=== PATIENT | male | born 1945 | race Caucasian/White ===

== ENCOUNTER 2022-01-24 22:58 | Inpatient (IN) | payer MEDICARE ==
[~2022-01-24] VITALS: Ht 188 cm; Wt 105.0 kg
[2022-01-25 00:36] LABS: BASOPHILS ABSOLUTE AUTO 0.03 K/mm3 (0.00-0.23); BASOPHILS PERCENT AUTO 0 % (0-2); EOSINOPHILS ABSOLUTE AUTO 0.19 K/mm3 (0.00-0.68); EOSINOPHILS PERCENT AUTO 2 % (0-6); IMMATURE GRAN ABSOLUTE AUTO 0.04 K/mm3 (0.00-0.10); IMMATURE GRAN PERCENT AUTO 0 % (0-1); LYMPHOCYTES ABSOLUTE AUTO 1.13 K/mm3 (0.84-5.20); LYMPHOCYTES PERCENT AUTO 11 % (21-46); MONOCYTES ABSOLUTE AUTO 1.01 K/mm3 (0.16-1.47); MONOCYTES PERCENT AUTO 10 % (4-13); Mean Corpuscular HGB 33.1 pg (26.0-34.0); Mean Corpuscular HGB Conc 34.4 g/dL (31.5-36.5); Mean Corpuscular Volume 96 fL (80-100); Mean Platelet Volume 11.8 fL (9.1-12.4); NEUTROPHILS ABSOLUTE AUTO 7.47 K/mm3 (1.96-9.15); NEUTROPHILS PERCENT AUTO 76 % (41-73); Platelet Count 263 K/mm3 (150-400); RDW Coefficient Variation 12.7 % (11.7-14.2); RDW Standard Deviation 45.1 fL (35.1-46.3); Red Blood Cell Count 3.32 M/mm3 (4.30-5.90); White Blood Cell Count 9.87 K/mm3 (4.00-11.30)
[2022-01-25 00:50] LABS: Albumin, Blood 3.7 g/dL (3.4-5.0); Albumin/Globulin Ratio 0.8 (0.8-1.8); Bilirubin, Total 0.2 mg/dL (0.1-1.0); Bun/Creatinine Ratio 18.9 (12.0-20.0); Creatinine, Blood 1.64 mg/dL (0.60-1.20); Globulin, Blood 4.5 g/dL (2.2-4.0); Potassium, Blood 4.1 mmol/L (3.5-5.5); Total Protein, Blood 8.2 g/dL (6.4-8.2)
[2022-01-25 02:10] LABS: International Normalized Ratio 0.98; Prothrombin Time Results 10.3 Sec (9.7-11.5)
[2022-01-25] MEDS ORDERED: METF500 PO (02:37)
[2022-01-25] MEDS ORDERED: ALLO300 PO (02:37)
[2022-01-25] MEDS ORDERED: BISOPROLOL-HCT1 EACH PO (02:38)
[2022-01-25] MEDS ORDERED: GLIP10 PO (02:39)
[2022-01-25] MEDS ORDERED: Avapro150 MG PO (02:41)
[2022-01-25] MEDS ORDERED: CILO100 PO (02:41)
[2022-01-25] MEDS ORDERED: C COMPLEX1000 M1 PO (02:42)
--- NOTE | 2022-01-25 03:38 | NUR ---
PATIENT RECEIVED AT ABOUT 0230. ADMISSION ASSESSMENT AND OTHER RELATED FORMS COMPLETED. PATIENT IS ADMITTED FOR ACUTE RIGHT PROXIMAL FEMUR FRACTURE WITH POSSIBLE SURGERY THIS AFTERNOON. HX OF DM 2, HTN, AND GOUT. PATIENT WILL NEED ORTHOPEDIC CONSULT TO HELP DETERMINE NEED FOR SURGERY. FULL CODE. PATIENT ON ROOM AIR. AOX4. VERY HARD OF HEARING, ADEPT AT LIP READING. SCDS IN PLACE FOR DVT PROPHYLAXIS. PERMISSION TO GIVE BLOOD AND PERMISSION TO SHARE INFORMATION FORMS COMPLETED AND IN CHART. CALL LIGHT LEFT WITHIN REACH.
--- NOTE | 2022-01-25 04:53 | NUR ---
ORTHOPEDIC CONSULT REQUEST PLACED. PATIENT SLEPT THROUGH REST OF NIGHT AFTER ADMISSION FORMS COMPLETED. NS RUNNING AT 75 ML/HOUR. CALL LIGHT LEFT WITHIN REACH.
[2022-01-25 05:16] LABS: BASOPHILS ABSOLUTE AUTO 0.02 K/mm3 (0.00-0.23); BASOPHILS PERCENT AUTO 0 % (0-2); EOSINOPHILS ABSOLUTE AUTO 0.05 K/mm3 (0.00-0.68); EOSINOPHILS PERCENT AUTO 1 % (0-6); Hemoglobin 9.5 g/dL (13.5-17.5); IMMATURE GRAN ABSOLUTE AUTO 0.03 K/mm3 (0.00-0.10); IMMATURE GRAN PERCENT AUTO 0 % (0-1); LYMPHOCYTES ABSOLUTE AUTO 0.66 K/mm3 (0.84-5.20); LYMPHOCYTES PERCENT AUTO 7 % (21-46); MONOCYTES ABSOLUTE AUTO 1.05 K/mm3 (0.16-1.47); MONOCYTES PERCENT AUTO 11 % (4-13); Mean Corpuscular HGB 32.8 pg (26.0-34.0); Mean Corpuscular HGB Conc 33.9 g/dL (31.5-36.5); Mean Corpuscular Volume 97 fL (80-100); Mean Platelet Volume 11.4 fL (9.1-12.4); NEUTROPHILS ABSOLUTE AUTO 7.58 K/mm3 (1.96-9.15); NEUTROPHILS PERCENT AUTO 81 % (41-73); Platelet Count 234 K/mm3 (150-400); RDW Coefficient Variation 12.7 % (11.7-14.2); RDW Standard Deviation 44.7 fL (35.1-46.3); White Blood Cell Count 9.39 K/mm3 (4.00-11.30)
[2022-01-25 05:34] LABS: Albumin, Blood 3.1 g/dL (3.4-5.0); Albumin/Globulin Ratio 0.8 (0.8-1.8); Bilirubin, Total 0.4 mg/dL (0.1-1.0); Bun/Creatinine Ratio 21.8 (12.0-20.0); Calcium, Blood 8.2 mg/dL (8.5-10.1); Creatinine, Blood 1.42 mg/dL (0.60-1.20); Globulin, Blood 3.8 g/dL (2.2-4.0); Potassium, Blood 4.4 mmol/L (3.5-5.5); Total Protein, Blood 6.9 g/dL (6.4-8.2)
--- NOTE | 2022-01-25 15:11 | NUR ---
SHIFT SUMMARY PT RESTING QUIETLY AWAKE DURING SHIFT REPORT. LYING FLAT ON BACK D/T R HIP FX. MEDICATED FOR C/O PAIN PRIOR TO START OF SHIFT, BUT SOON REPORTING SEVERE PAIN AGAIN EARLY INTO SHIFT. DR CHAPMAN NOTIFIED FOR ADDITIONAL PAIN MEDICATION; NEW ORDERS RECEIVED. PT MEDICATED PRIOR TO STAT CT ORDER AND SLIDE TX TO [facility]. DR BRITT HERE LATER TO SEE PT AND DISCUSS PLAN OF CARE. WOUND TO BOTTOM OF R FOOT ASSESSED BY DR BRITT; ADDITIONAL XRAYS ORDERED. IMAGING TO AND ABLE TO OBTAIN XRAYS W/O ANOTHER SLIDE TX OF PT. PT REPORTED THAT HE HAD AN APPOINTMENT WITH PODIATRY IN [place] TODAY, BUT UNABLE TO GO D/T FALL LAST NIGHT. PT IS VERY [place]; ABLE TO READ LIPS. USING URINAL IN BED TODAY. DAY SX CALLED TO REPORT PT'S SX WILL BE TOMORROW AM. PT MAY EAT TODAY AND RETURN TO NPO AFTER MN. IVF'S INFUSING X1 LITER. FAMILY IN TO VISIT THIS AFTERNOON. PT IS PLEASANT AND CO-OP. ABLE TO MAKE NEEDS KNOWN. CALL LT IN REACH.
--- NOTE | 2022-01-26 04:08 | NUR ---
SHIFT SUMMARY ADMITTED FOR PROXIMAL RT. FEMUR FX. FULL CODE. PLAN IS FOR SURGICAL INTERVENTION TODAY. DR. WEEMS IS SURGICAL CONSULT. Q6 CBG'S WHILE NPO, OTHERWISE ACHS - LOW SS. HE HAS BEEN NPO SINCE MIDNIGHT. HE HAS WOKEN UP CONFUSED AND CALLING OUT A FEW TIMES THIS SHIFT. BED ALARM IS ACTIVE. PAIN RX GIVEN THIS SHIFT, SEE EMAR. HE IS ON BEDREST THIS SHIFT. HE DOES USE A URINAL. HE READS LIPS, HE HAS A COCHLEAR IMPLANT. THERE IS A DRY PRE-EXISTING DIABETIC ULCER ON BOTTOM OF RT. FOOT. ON RA.
[2022-01-26 05:13] LABS: BASOPHILS ABSOLUTE AUTO 0.02 K/mm3 (0.00-0.23); BASOPHILS PERCENT AUTO 0 % (0-2); EOSINOPHILS ABSOLUTE AUTO 0.06 K/mm3 (0.00-0.68); EOSINOPHILS PERCENT AUTO 1 % (0-6); Hematocrit 28.7 % (37.0-53.0); Hemoglobin 9.8 g/dL (13.5-17.5); IMMATURE GRAN ABSOLUTE AUTO 0.03 K/mm3 (0.00-0.10); IMMATURE GRAN PERCENT AUTO 0 % (0-1); LYMPHOCYTES ABSOLUTE AUTO 1.08 K/mm3 (0.84-5.20); LYMPHOCYTES PERCENT AUTO 12 % (21-46); MONOCYTES ABSOLUTE AUTO 1.11 K/mm3 (0.16-1.47); MONOCYTES PERCENT AUTO 12 % (4-13); Mean Corpuscular HGB 32.6 pg (26.0-34.0); Mean Corpuscular HGB Conc 34.1 g/dL (31.5-36.5); Mean Corpuscular Volume 95 fL (80-100); Mean Platelet Volume 11.3 fL (9.1-12.4); NEUTROPHILS ABSOLUTE AUTO 6.87 K/mm3 (1.96-9.15); NEUTROPHILS PERCENT AUTO 75 % (41-73); Platelet Count 252 K/mm3 (150-400); RDW Coefficient Variation 12.4 % (11.7-14.2); RDW Standard Deviation 43.2 fL (35.1-46.3); Red Blood Cell Count 3.01 M/mm3 (4.30-5.90); White Blood Cell Count 9.17 K/mm3 (4.00-11.30)
[2022-01-26 05:52] LABS: Albumin, Blood 3.1 g/dL (3.4-5.0); Anion Gap 7 mmol/L (6-16); Blood Urea Nitrogen 25 mg/dL (8-24); Bun/Creatinine Ratio 21.2 (12.0-20.0); CO2, Blood 25 mmol/L (21-32); Calcium, Blood 8.7 mg/dL (8.5-10.1); Chloride, Blood 101 mmol/L (98-108); Creatinine, Blood 1.18 mg/dL (0.60-1.20); Glomerular Filtration Rate 64 (60-); Glucose, Blood 245 mg/dL (70-99); Phosphorus, Blood 2.9 mg/dL (2.5-4.9); Potassium, Blood 4.4 mmol/L (3.5-5.5); Sodium, Blood 133 mmol/L (136-145)
--- NOTE | 2022-01-26 08:09 | NUR ---
DAHLIA ABURTO, AND APPEARS TO BE CONFUSED. DR. BURKETT HERE THIS AM, STATES SURGERY WILL BE 9AM. ASSESSEMENT COMPLETED. INSULIN AND OTHER MORNING MEDICATIONS HELD WITH CONSULT OF DR. CARABALLO. PATIENT IS AWAITING SURGERY.
--- NOTE | 2022-01-26 10:32 | NUR ---
Patient went to surgery this am at 9am. He will be transfered to surgical 17 once done, for post op care. Report ws called to NATO Uriarte.
--- NOTE | 2022-01-26 17:26 | NUR ---
END OF SHIFT NOTE PT BROUGHT TO SURGICAL RM 217 FROM OR @ APPROX 1215 TODAY AFTER R HIP REPAIR. PT SLEEPING HEAVILY, WAKING ONLY FOR SHORT TIME BEFORE GOING BACK TO SLEEP. PT MORE ALERT THIS EVENING. PT [place], REQUESTING STAFF MASK BE LOWERED WHEN TALKING TO HIM BECAUSE HE READS LIPS. PT VSS. SPO2 > 92% ON RA. PT DENYING PAIN/DISCOMFORT. DRESSING TO R HIP C/D/I. PT URINATING POST SURGERY W/ OUT DIFFICULTY.
[2022-01-27 04:57] LABS: BASOPHILS ABSOLUTE AUTO 0.01 K/mm3 (0.00-0.23); BASOPHILS PERCENT AUTO 0 % (0-2); EOSINOPHILS ABSOLUTE AUTO 0.02 K/mm3 (0.00-0.68); EOSINOPHILS PERCENT AUTO 0 % (0-6); Hematocrit 25.7 % (37.0-53.0); Hemoglobin 8.7 g/dL (13.5-17.5); IMMATURE GRAN ABSOLUTE AUTO 0.04 K/mm3 (0.00-0.10); IMMATURE GRAN PERCENT AUTO 0 % (0-1); LYMPHOCYTES ABSOLUTE AUTO 1.21 K/mm3 (0.84-5.20); LYMPHOCYTES PERCENT AUTO 11 % (21-46); MONOCYTES ABSOLUTE AUTO 1.42 K/mm3 (0.16-1.47); MONOCYTES PERCENT AUTO 12 % (4-13); Mean Corpuscular HGB 32.8 pg (26.0-34.0); Mean Corpuscular HGB Conc 33.9 g/dL (31.5-36.5); Mean Corpuscular Volume 97 fL (80-100); Mean Platelet Volume 11.6 fL (9.1-12.4); NEUTROPHILS ABSOLUTE AUTO 8.83 K/mm3 (1.96-9.15); NEUTROPHILS PERCENT AUTO 77 % (41-73); Platelet Count 251 K/mm3 (150-400); RDW Coefficient Variation 12.3 % (11.7-14.2); RDW Standard Deviation 43.1 fL (35.1-46.3); Red Blood Cell Count 2.65 M/mm3 (4.30-5.90); White Blood Cell Count 11.53 K/mm3 (4.00-11.30)
[2022-01-27 05:22] LABS: Bun/Creatinine Ratio 26.4 (12.0-20.0); Calcium, Blood 8.3 mg/dL (8.5-10.1); Creatinine, Blood 1.29 mg/dL (0.60-1.20); Potassium, Blood 4.6 mmol/L (3.5-5.5)
--- NOTE | 2022-01-27 06:46 | NUR ---
POD1 FOR A RIGHT HIP PINNING. DRESSINGS ARE C/D/I. CIRCULATION AND SENSATION REMAIN INTACT. MEDCATED FOR PAIN WITH NORCO T/O THE NIGHT. PT WAS ABLE TO SHIFT HIS WEIGHT IN BED BUT REFUSED REPOSITIONING T/O THE NIGHT. THE PT SLEP ON AND OFF. TOLLERATED PO INTAKE W/O N/V, PASSING FLATTUS AND URINE W/O DIFFICULTY. PLAN FOR PT TO WORK WITH PT/OT TODAY AND EVALUATE WHEN D/C HOME SAFE. THE PATIENT IS CURRENTLY RESTING IN BED, IN NO DISTRESS, CALL LIGHT IN reach
--- NOTE | 2022-01-27 07:12 | NUR ---
ASSUMED CARE: PT RESTING QUIETLY AT THIS TIME. NO ACUTE NEEDS OR CONCERNS.
--- NOTE | 2022-01-27 07:59 | NUR ---
OCCUPATIONAL THERAPY AT BEDSIDE AT THIS TIME.
[2022-01-27] MEDS ORDERED: METO50ER PO (13:32)
--- NOTE | 2022-01-27 15:27 | NUR ---
DISCHARGE: IV'S DC'D WNL. PT GIVEN DISCHARGE INSTRUCTIONS REGARDING FOLLOW UP APPOINTMENTS AND WAS ASKED TO DEMONSTRATE HIP PRECAUTIONS. PT EXHIBITED ABILITY TO STAND AND PIVOT AND WAS CORRECTED DURING INAPPROPRIATE TECHNIQUE. FAMILY WAS INCLUDED IN THESE DEMONSTRATIONS AND CONVERSATIONS. PT WAS ESCORTED OUT VIA WHEEL CHAIR BY HOSPITAL STAFF.
--- NOTE | 2022-01-31 10:40 | NUR ---
01/31/22 1040 Marie Mckeon VERIFICATIONS: EDIT CHART.
== END 2022-01-27 01:45 | disposition home or self-care (01) | DRG 481 ==
LOC: ER 22:58 → SURS 01-25 02:05 → MEDS 01-25 02:05 → SURS 01-25 02:05 → MEDS 01-25 02:16 → SURS 01-26 11:40
PROVIDERS: Family Medicine; Orthopaedic Surgery; Student in an Organized Health Care Education/Training Program; ADMIT Internal Medicine
PROC: 0QS606Z Reposition Right Upper Femur with Intramedullary Internal Fixation Device, Open Approach (ICD-10-PCS; principal; 2022-01-26 09:30)
DX: S72.141A Displaced intertrochanteric fracture of right femur, initial encounter for closed fracture (principal); N17.9 Acute kidney failure, unspecified; D63.1 Anemia in chronic kidney disease; Z28.21 Immunization not carried out because of patient refusal; N18.30 Chronic kidney disease, stage 3 unspecified; E11.22 Type 2 diabetes mellitus with diabetic chronic kidney disease; I12.9 Hypertensive chronic kidney disease with stage 1 through stage 4 chronic kidney disease, or unspecified chronic kidney disease; M10.9 Gout, unspecified; Z87.891 Personal history of nicotine dependence; Z88.8 Allergy status to other drugs, medicaments and biological substances; Z95.828 Presence of other vascular implants and grafts; W18.39XA Other fall on same level, initial encounter; Y92.019 Unspecified place in single-family (private) house as the place of occurrence of the external cause
CPT/HCPCS: 36415; 73502; 73552; 73630; 73700; 76377; 80048; 80053; 80069; 82947; 83880; 85025; 85610; 85730; 86850; 86900; 86901; 96374; 97110; 97162; 97166; 97530; 97535; 99285-25; A9270; C1713; J0171; J0690; J1100; J1170; J1885; J2250; J2405; J2704; J3010; J7030; J7120

== ENCOUNTER 2022-10-12 08:48 | Day surgery (SDC) | payer MEDICARE ==
[~2022-10-12] VITALS: Ht 188 cm; Wt 99.0 kg
[~2022-10-12 08:48] MED LIST: ALLO300 PO; Avapro150 MG PO; BISOPROLOL-HCT1 EACH PO; C COMPLEX1000 M1 PO; CILO100 PO; GLIP10 PO; METF500 PO; METO50ER PO
[2022-10-12 13:01] VITALS: BP 122/71
== END 2022-10-12 11:11 | disposition home or self-care (01) ==
LOC: ORSCSDS 08:48
PROVIDERS: Specialist
PROC: 0DBP8ZX Excision of Rectum, Via Natural or Artificial Opening Endoscopic, Diagnostic (ICD-10-PCS; principal; 2022-10-12 09:45)
PROC: 0DBM8ZX Excision of Descending Colon, Via Natural or Artificial Opening Endoscopic, Diagnostic (ICD-10-PCS; principal; 2022-10-12 09:45)
PROC: 0DBL8ZX Excision of Transverse Colon, Via Natural or Artificial Opening Endoscopic, Diagnostic (ICD-10-PCS; principal; 2022-10-12 09:45)
DX: Z12.11 Encounter for screening for malignant neoplasm of colon (principal); Z86.010 Personal history of colon polyps; D12.3 Benign neoplasm of transverse colon; D12.4 Benign neoplasm of descending colon; D12.8 Benign neoplasm of rectum; K64.8 Other hemorrhoids; K57.30 Diverticulosis of large intestine without perforation or abscess without bleeding; I10 Essential (primary) hypertension; E11.9 Type 2 diabetes mellitus without complications; Z86.718 Personal history of other venous thrombosis and embolism; Z87.891 Personal history of nicotine dependence; Z79.899 Other long term (current) drug therapy
CPT/HCPCS: 82947; 88305; J2405; J2704; J7120

== ENCOUNTER 2023-04-10 18:07 | Inpatient (IN) | payer MEDICARE ==
[~2023-04-10] VITALS: Ht 188 cm; Wt 102.1 kg
[2023-04-10 18:48] LABS: Source, Urine Clean Catch
[2023-04-10 18:52] LABS: Appearance, Urine Clear (Clear); Bilirubin, Urine Neg (Neg); Blood, Urine Neg (Neg); Color, Urine Yellow (P-Yellow); Glucose Qualitative, Urine Neg (Neg); Ketones, Urine Neg (Neg); Leukocyte Esterase, Urine Neg (Neg); Nitrite, Urine Neg (Neg); Protein, Urine Neg (Neg); Urobilinogen, Urine NORM (Normal)
[2023-04-10] MEDS ORDERED: NS 1,000 ML IV SCH (19:10)
[2023-04-10] MEDS ORDERED: Acetaminophen 500 MG Tab PO ONE (19:10)
[2023-04-10 19:13] LABS: Albumin, Blood 3.7 g/dL (3.4-5.0); Bilirubin, Total 0.4 mg/dL (0.1-1.0); Bun/Creatinine Ratio 23.4 (12.0-20.0); Calcium, Blood 8.2 mg/dL (8.5-10.1); Creatinine, Blood 1.54 mg/dL (0.60-1.20); Globulin, Blood 3.7 g/dL (2.2-4.0); Potassium, Blood 4.7 mmol/L (3.5-5.5); Total Protein, Blood 7.4 g/dL (6.4-8.2)
[2023-04-10 19:50] LABS: BASOPHILS ABSOLUTE AUTO 0.02 K/mm3 (0.00-0.23); BASOPHILS PERCENT AUTO 0 % (0-2); EOSINOPHILS ABSOLUTE AUTO 0.01 K/mm3 (0.00-0.68); EOSINOPHILS PERCENT AUTO 0 % (0-6); Hematocrit 29.8 % (37.0-53.0); IMMATURE GRAN ABSOLUTE AUTO 0.12 K/mm3 (0.00-0.10); IMMATURE GRAN PERCENT AUTO 1 % (0-1); LYMPHOCYTES PERCENT AUTO 4 % (21-46); MONOCYTES ABSOLUTE AUTO 1.44 K/mm3 (0.16-1.47); MONOCYTES PERCENT AUTO 10 % (4-13); Mean Corpuscular HGB 32.8 pg (26.0-34.0); Mean Corpuscular HGB Conc 33.6 g/dL (31.5-36.5); Mean Corpuscular Volume 98 fL (80-100); Mean Platelet Volume 11.2 fL (9.1-12.4); NEUTROPHILS ABSOLUTE AUTO 12.83 K/mm3 (1.96-9.15); NEUTROPHILS PERCENT AUTO 85 % (41-73); Platelet Count 204 K/mm3 (150-400); RDW Coefficient Variation 13.2 % (11.7-14.2); RDW Standard Deviation 47.2 fL (35.1-46.3); Red Blood Cell Count 3.05 M/mm3 (4.30-5.90); White Blood Cell Count 15.02 K/mm3 (4.00-11.30)
[2023-04-10 20:00] LABS: Influenza A, PCR NEGATIVE (NEGATIVE); Influenza B, PCR NEGATIVE (NEGATIVE); Resp Syncytial Virus, PCR NEGATIVE (NEGATIVE); SARS-Cov-2 (COVID-19) PCR, MMC NEGATIVE (NEGATIVE)
[2023-04-10] MEDS ORDERED: IRBESARTAN150 M3 PO (21:01)
[2023-04-10 21:59] LABS: Adenovirus Not Detected (NOT DETECT); Bordetella pertussis Not Detected (NOT DETECT); Chlamydophila pneumoniae Not Detected (NOT DETECT); Coronavirus 229E Not Detected (NOT DETECT); Coronavirus HKU1 Not Detected (NOT DETECT); Coronavirus NL63 Not Detected (NOT DETECT); Coronavirus OC43 Not Detected (NOT DETECT); Human Metapneumovirus Not Detected (NOT DETECT); Human Rhinovirus/Enterovirus Not Detected (NOT DETECT); Influenza A/2009-H1 Not Detected (NOT DETECT); Influenza A/H1 Not Detected (NOT DETECT); Influenza A/H3 Not Detected (NOT DETECT); Influenza B Not Detected (NOT DETECT); Mycoplasma pneumoniae Not Detected (NOT DETECT); Parainfluenza Virus 1 Not Detected (NOT DETECT); Parainfluenza Virus 2 Not Detected (NOT DETECT); Parainfluenza Virus 3 Not Detected (NOT DETECT); Parainfluenza Virus 4 Not Detected (NOT DETECT); Respiratory Syncytial Virus Not Detected (NOT DETECT); SARS-Cov-2 (COVID-19), BioFire Not Detected (NOT DETECT)
[2023-04-10] MEDS ORDERED: Ondansetron HCl 2 MG / ML 2ML Vial IV PRN (22:35)
[2023-04-10] MEDS ORDERED: FLU VACC QS2023-24(6MOS UP)/PF 60 MCG/0.5 ML SYRINGE IM ONE (22:35)
[2023-04-10] MEDS ORDERED: NS 1,000 ML IV ONE ×2 (22:35→22:52)
[2023-04-10] MEDS ORDERED: CefTRIAXone Sodium 1,000 MG in NS 50 ML IV SCH (22:41)
[2023-04-10] MEDS ORDERED: Enoxaparin 40 MG/0.4 ML SYR SC SCH (23:00)
[2023-04-11 00:23] VITALS: BP 126/62
[2023-04-11 00:25] LABS: BASOPHILS ABSOLUTE AUTO 0.02 K/mm3 (0.00-0.23); BASOPHILS PERCENT AUTO 0 % (0-2); EOSINOPHILS PERCENT AUTO 0 % (0-6); Hematocrit 29.7 % (37.0-53.0); Hemoglobin 9.7 g/dL (13.5-17.5); IMMATURE GRAN ABSOLUTE AUTO 0.09 K/mm3 (0.00-0.10); IMMATURE GRAN PERCENT AUTO 1 % (0-1); LYMPHOCYTES ABSOLUTE AUTO 0.93 K/mm3 (0.84-5.20); LYMPHOCYTES PERCENT AUTO 7 % (21-46); MONOCYTES ABSOLUTE AUTO 1.01 K/mm3 (0.16-1.47); MONOCYTES PERCENT AUTO 7 % (4-13); Mean Corpuscular HGB 32.6 pg (26.0-34.0); Mean Corpuscular HGB Conc 32.7 g/dL (31.5-36.5); Mean Corpuscular Volume 100 fL (80-100); Mean Platelet Volume 11.4 fL (9.1-12.4); NEUTROPHILS ABSOLUTE AUTO 12.14 K/mm3 (1.96-9.15); NEUTROPHILS PERCENT AUTO 86 % (41-73); Platelet Count 191 K/mm3 (150-400); RDW Coefficient Variation 13.4 % (11.7-14.2); RDW Standard Deviation 49.1 fL (35.1-46.3); Red Blood Cell Count 2.98 M/mm3 (4.30-5.90); White Blood Cell Count 14.19 K/mm3 (4.00-11.30)
[2023-04-11 00:39] LABS: International Normalized Ratio 1.04; Prothrombin Time Results 10.9 Sec (9.7-11.5)
[2023-04-11 00:45] LABS: Albumin, Blood 3.3 g/dL (3.4-5.0); Albumin/Globulin Ratio 0.9 (0.8-1.8); Bilirubin, Total 0.3 mg/dL (0.1-1.0); Bun/Creatinine Ratio 22.4 (12.0-20.0); Calcium, Blood 8.5 mg/dL (8.5-10.1); Creatinine, Blood 1.65 mg/dL (0.60-1.20); Globulin, Blood 3.7 g/dL (2.2-4.0)
[2023-04-11 03:28] VITALS: BP 122/73
[2023-04-11] MEDS ORDERED: FentaNYL Citrate 50 MCG/ML 2 ML Injection IV PRN (05:30)
[2023-04-11] MEDS ORDERED: CeFAZolin Sodium 1,000 MG in NS 50 ML IV SCH (06:00)
[2023-04-11] MEDS ORDERED: Insulin Regular 100 UNIT/ML 10ML Vial SC SCH (07:30)
[2023-04-11 08:05] VITALS: BP 101/58
--- NOTE | 2023-04-11 08:06 | NUR ---
SHIFT SUMMARY PT ARRIVED TO ROOM 349 FROM ER AROUND MIDNIGHT VIA GURNEY. TRANSFERED PT TO HOSPITAL BED USING SLIDE SHEET. PT IS A&O TO SELF AND PERSON. VSS ON RA. NSR IN THE 80'S PER TELEMETRY. PT IS DEAF, HAS COCHLEAR IMPLANT ON LEFT. BATTERY IS , SO HOPEFULLY HIS BRINGS IN THE REAL ESTATE FIRM MANAGER. PT READS LIPS MOSTLY. C/O PAIN IN HIS RIGHT LEG R/T BREAKING HIS FEMUR LAST YEAR, AND ALSO PAIN IN HIS BACK. CALLED DR TO GET PAIN MEDICATIONS, SEE NEW ORDER. TOLERATING THIN LIQUIDS WITH STRAW, NO COUGHING. USES URINAL INDEPENDENTLY IN BED. VOIDING ADEQUATE AMOUNTS OF CLEAR, YELLOW URINE. NO BM THIS SHIFT. PT'S LLE HAYES AREA IS RED AND WARM, LOOKS LIKE POSSIBLE CELLULITIS. NO C/O PAIN HERE. PT USES A CANE OR FWW AT BASELINE. HAS NOT BEEN OOB HERE YET. BED IN LOWEST POSITION, CALL LIGHT WITHIN REACH.
[2023-04-11] MEDS ORDERED: Irbesartan 150 MG Tab PO SCH (09:00)
[2023-04-11] MEDS ORDERED: Metoprolol Succinate 50 MG TABCR PO SCH (09:00)
[2023-04-11] MEDS ORDERED: Cilostazol 50 MG Tab PO SCH (09:00)
[2023-04-11 11:00] VITALS: BP 103/59
[2023-04-11 15:59] VITALS: BP 118/74
--- NOTE | 2023-04-11 18:03 | NUR ---
SHIFT SUMMARY PT BP SOFT TODAY. METOPROLOL AND AVAPRO HELD TODAY. MD NOTIFIED AND PARAMETERS ADDED TO ORDER. PT SLEEPING MOST THE DAY. PT STATES "ITS A SLEEPY DAY TODAY". INSULIN GIVEN ONCE TODAY FOR DINNER COVERAGE. NO OTHER ACUTE CHANGES IN ASSESSMENT AT THIS TIME. VS REVIEWD. CALL LIGHT IN REACH. UP IN BED, EATING DINNER. AWAITING PT EVAL. NO OTHER ACUTE CHANGES IN ASSESSMENT AT THIS TIME. PT HAS DRUM REEL CUTTER FOR COCHLEAR IMPLANT. PT IS ORIENTED WHEN HE HAS THIS CHARGED AND ABLE TO HEAR STAFF. DENIES OTHER NEEDS AT THIS TIME.
[2023-04-11 19:42] VITALS: BP 134/64
[2023-04-12 00:47] VITALS: BP 141/67
--- NOTE | 2023-04-12 02:53 | NUR ---
SHIFT SUMMARY ALISIA IS A&OX2-3, HARD TO ASSESS D/T HIM BEING DEAF. VSS ON RA. NSR IN THE 80'S PER TELEMETRY. PT C/O LARRY AND PAIN IN HIS LEGS, DID NOT WANT TO TAKE PRN FENTANYL. NO ACUTE CHANGES THIS SHIFT. PT DID C/O CHEST PAIN, VSS WERE STABLE AND HE WAS IN NSR @86. IT WAS AFTER GIVING HIM HIS NIGHT TIME MEDICATIONS AND HE THOUGHT THEY WERE MAKING HIM SICK. SALTINE CRACKERS GIVEN, IT DID HELP. HE ALSO STATED HE ATE [place] FOR DINNER. USES URINAL INDEPENDENTLY IN BED. NO BM THIS SHIFT. NOOB THIS SHIFT. BED IN LOWEST POSITION, CALL LIGHT WITHIN REACH. BED ALARM SET FOR PT'S SAFETY.
[2023-04-12 03:59] VITALS: BP 128/67
[2023-04-12 05:30] LABS: BASOPHILS ABSOLUTE AUTO 0.02 K/mm3 (0.00-0.23); BASOPHILS PERCENT AUTO 0 % (0-2); EOSINOPHILS ABSOLUTE AUTO 0.05 K/mm3 (0.00-0.68); EOSINOPHILS PERCENT AUTO 1 % (0-6); Hematocrit 27.7 % (37.0-53.0); Hemoglobin 9.2 g/dL (13.5-17.5); IMMATURE GRAN ABSOLUTE AUTO 0.04 K/mm3 (0.00-0.10); IMMATURE GRAN PERCENT AUTO 1 % (0-1); LYMPHOCYTES PERCENT AUTO 14 % (21-46); MONOCYTES PERCENT AUTO 14 % (4-13); Mean Corpuscular HGB 32.9 pg (26.0-34.0); Mean Corpuscular HGB Conc 33.2 g/dL (31.5-36.5); Mean Corpuscular Volume 99 fL (80-100); Mean Platelet Volume 12.3 fL (9.1-12.4); NEUTROPHILS PERCENT AUTO 71 % (41-73); Platelet Count 171 K/mm3 (150-400); RDW Coefficient Variation 13.3 % (11.7-14.2); RDW Standard Deviation 48.4 fL (35.1-46.3); White Blood Cell Count 8.51 K/mm3 (4.00-11.30)
[2023-04-12 05:49] LABS: Bun/Creatinine Ratio 19.4 (12.0-20.0); Calcium, Blood 8.4 mg/dL (8.5-10.1); Creatinine, Blood 1.29 mg/dL (0.60-1.20); Potassium, Blood 3.8 mmol/L (3.5-5.5)
[2023-04-12 07:44] VITALS: BP 134/67
[2023-04-12] MEDS ORDERED: Irbesartan 150 MG Tab PO SCH (09:00)
[2023-04-12] MEDS ORDERED: Metoprolol Succinate 50 MG TABCR PO SCH (09:00)
[2023-04-12] MEDS ORDERED: CEPH500 PO (10:02)
[2023-04-12] MEDS ORDERED: PROBIOTIC1 EA13 PO (10:02)
--- NOTE | 2023-04-12 10:44 | NUR ---
DISCHARGE HOME Patient AOx4, OOB walked with patient, steady gait, doing well. IV ABX administred, pt medically stable for discharge. Left medical unit t 1025.
== END 2023-04-12 10:26 | disposition home or self-care (01) | DRG 603 ==
LOC: ER 18:07 → MEDS 18:08
PROVIDERS: Emergency Medicine; Internal Medicine; Student in an Organized Health Care Education/Training Program; ADMIT Internal Medicine
DX: L03.116 Cellulitis of left lower limb (principal); G93.49 Other encephalopathy; N17.9 Acute kidney failure, unspecified; E11.22 Type 2 diabetes mellitus with diabetic chronic kidney disease; I12.9 Hypertensive chronic kidney disease with stage 1 through stage 4 chronic kidney disease, or unspecified chronic kidney disease; E11.51 Type 2 diabetes mellitus with diabetic peripheral angiopathy without gangrene; N18.2 Chronic kidney disease, stage 2 (mild); Z79.84 Long term (current) use of oral hypoglycemic drugs; Z87.891 Personal history of nicotine dependence
CPT/HCPCS: 0202U; 0241U; 36415; 71046; 80048; 80053; 81003; 82947; 83605; 84145; 85025; 85610; 96361; 96365; 96375; 99285-25; A9270; J0690; J0696; J1650; J1815; J3010; J7030

== ENCOUNTER 2023-09-02 22:03 | Emergency (ER) | payer MEDICARE ==
[~2023-09-02] VITALS: Ht 182.9 cm; Wt 90.7 kg
[~2023-09-02 22:03] MED LIST changes: +CEPH500 PO; +IRBESARTAN150 M3 PO; +PROBIOTIC1 EA13 PO
[2023-09-02 22:23] VITALS: BP 161/88
[2023-09-03 00:16] LABS: BASOPHILS ABSOLUTE AUTO 0.04 K/mm3 (0.00-0.23); BASOPHILS PERCENT AUTO 0 % (0-2); EOSINOPHILS ABSOLUTE AUTO 0.13 K/mm3 (0.00-0.68); EOSINOPHILS PERCENT AUTO 1 % (0-6); Hematocrit 29.9 % (37.0-53.0); Hemoglobin 10.1 g/dL (13.5-17.5); IMMATURE GRAN ABSOLUTE AUTO 0.02 K/mm3 (0.00-0.10); IMMATURE GRAN PERCENT AUTO 0 % (0-1); LYMPHOCYTES ABSOLUTE AUTO 1.95 K/mm3 (0.84-5.20); LYMPHOCYTES PERCENT AUTO 19 % (21-46); MONOCYTES ABSOLUTE AUTO 1.19 K/mm3 (0.16-1.47); MONOCYTES PERCENT AUTO 11 % (4-13); Mean Corpuscular HGB 32.7 pg (26.0-34.0); Mean Corpuscular HGB Conc 33.8 g/dL (31.5-36.5); Mean Corpuscular Volume 97 fL (80-100); NEUTROPHILS ABSOLUTE AUTO 7.14 K/mm3 (1.96-9.15); NEUTROPHILS PERCENT AUTO 68 % (41-73); Platelet Count 262 K/mm3 (150-400); RDW Coefficient Variation 13.6 % (11.7-14.2); RDW Standard Deviation 48.2 fL (35.1-46.3); Red Blood Cell Count 3.09 M/mm3 (4.30-5.90); White Blood Cell Count 10.47 K/mm3 (4.00-11.30)
[2023-09-03 00:31] LABS: Bun/Creatinine Ratio 21.6 (12.0-20.0); Calcium, Blood 8.9 mg/dL (8.5-10.1); Creatinine, Blood 1.34 mg/dL (0.60-1.20); Potassium, Blood 4.1 mmol/L (3.5-5.5)
[2023-09-03] MEDS ORDERED: CLIN300 PO (01:09)
[2023-09-03] MEDS ORDERED: Clindamycin HCl 150 MG Cap PO ONE (01:10)
== END 2023-09-03 01:45 | disposition home or self-care (01) ==
LOC: ER 22:03
PROVIDERS: Emergency Medicine
DX: L03.116 Cellulitis of left lower limb (principal); E11.621 Type 2 diabetes mellitus with foot ulcer; E11.51 Type 2 diabetes mellitus with diabetic peripheral angiopathy without gangrene; E11.22 Type 2 diabetes mellitus with diabetic chronic kidney disease; I12.9 Hypertensive chronic kidney disease with stage 1 through stage 4 chronic kidney disease, or unspecified chronic kidney disease; N18.9 Chronic kidney disease, unspecified; Z87.891 Personal history of nicotine dependence; Z79.899 Other long term (current) drug therapy
CPT/HCPCS: 73630; 80048; 85025; 99283-25; A9270

== ENCOUNTER 2023-09-18 12:05 | Inpatient (IN) | payer MEDICARE ==
[~2023-09-18] VITALS: Ht 188 cm; Wt 95.5 kg
[~2023-09-18 12:05] MED LIST changes: +CLIN300 PO
[2023-09-18 12:51] LABS: BASOPHILS ABSOLUTE AUTO 0.03 K/mm3 (0.00-0.23); BASOPHILS PERCENT AUTO 0 % (0-2); EOSINOPHILS ABSOLUTE AUTO 0.12 K/mm3 (0.00-0.68); EOSINOPHILS PERCENT AUTO 2 % (0-6); Hemoglobin 9.2 g/dL (13.5-17.5); IMMATURE GRAN ABSOLUTE AUTO 0.02 K/mm3 (0.00-0.10); IMMATURE GRAN PERCENT AUTO 0 % (0-1); LYMPHOCYTES ABSOLUTE AUTO 1.13 K/mm3 (0.84-5.20); LYMPHOCYTES PERCENT AUTO 14 % (21-46); MONOCYTES ABSOLUTE AUTO 0.76 K/mm3 (0.16-1.47); MONOCYTES PERCENT AUTO 10 % (4-13); Mean Corpuscular HGB 31.8 pg (26.0-34.0); Mean Corpuscular HGB Conc 32.9 g/dL (31.5-36.5); Mean Corpuscular Volume 97 fL (80-100); Mean Platelet Volume 10.7 fL (9.1-12.4); NEUTROPHILS PERCENT AUTO 74 % (41-73); Platelet Count 405 K/mm3 (150-400); RDW Coefficient Variation 13.2 % (11.7-14.2); RDW Standard Deviation 46.9 fL (35.1-46.3); Red Blood Cell Count 2.89 M/mm3 (4.30-5.90); White Blood Cell Count 7.96 K/mm3 (4.00-11.30)
[2023-09-18 13:12] LABS: Albumin, Blood 3.1 g/dL (3.4-5.0); Albumin/Globulin Ratio 0.6 (0.8-1.8); Bilirubin, Total 0.3 mg/dL (0.1-1.0); Calcium, Blood 8.8 mg/dL (8.5-10.1); Creatinine, Blood 1.35 mg/dL (0.60-1.20); Potassium, Blood 4.5 mmol/L (3.5-5.5); Total Protein, Blood 8.1 g/dL (6.4-8.2)
[2023-09-18] MEDS ORDERED: CLIN150 PO (15:50)
[2023-09-18] MEDS ORDERED: ATOR40TA PO (15:51)
[2023-09-18] MEDS ORDERED: POTA10T PO (15:52)
[2023-09-18] MEDS ORDERED: FURO20 PO (15:52)
[2023-09-18] MEDS ORDERED: Ondansetron HCl 2 MG / ML 2ML Vial IV PRN (16:50)
[2023-09-18] MEDS ORDERED: FentaNYL Citrate 50 MCG/ML 2 ML Injection IV PRN (16:55)
[2023-09-18] MEDS ORDERED: Acetaminophen 325 MG TABLET PO PRN (16:55)
[2023-09-18] MEDS ORDERED: NS 1,000 ML IV SCH (16:55)
[2023-09-18] MEDS ORDERED: Insulin Glargine-Yfgn 100 Unit/mL 3 ML SYR SC SCH (17:00)
[2023-09-18 17:32] LABS: International Normalized Ratio 1.01; Prothrombin Time Results 10.8 Sec (9.7-11.5)
[2023-09-18] MEDS ORDERED: CefTRIAXone Sodium 2,000 MG in NS 100 ML IV ONE (18:35)
[2023-09-18 18:55] VITALS: BP 166/86
[2023-09-18] MEDS ORDERED: Vancomycin HCL 2,500 MG in NS 500 ML IV ONE (19:00)
[2023-09-18 21:02] VITALS: BP 148/90
[2023-09-19 02:12] VITALS: BP 130/67
--- NOTE | 2023-09-19 04:00 | NUR ---
SHIFT SUMMARY ASSUMED CARE AT APPROX 191. NO ACUTE EVENTS OVERNIGHT. PATIENT SLEPT T/O - IS EASILY AROUSABLE WITH VERBAL STIMULI. ALERT AND ORIENTED X4. IS DEAF - HEARING AIDES AT BEDSIDE. COMMUNICATES NEEDS EFFECTIVELY. VSS. TELEMETRY SHOWING SINUS 80s. NO EVENTS REPORTED BY CANDY FEEDER T/O NIGHT. ON ROOM AIR, SATs >90%. RESPIRATIONS EVEN, UNLABORED. OPEN WOUND TO L PINKY TOE. PICTURE IN CHART. GAUZE AND HEATHER WRAP BANDAGE APPLIED, REMAINS C/D/I. PPP. PAIN TOLERABLE T/O NIGHT. NPO SINCE MIDNIGHT FOR POSSIBLE AMPUTATION TODAY. REPOSITIONS HIMSELF INDEPENDENTLY IN BED. IS A SBA WITH CANE FOR MOBILITY. CALL LIGHT IN REACH. X1 BAG OF IVF INFUSING PER EMAR. WILL CONTINUE TO MONITOR AND REPORT TO ONCOMING RN.
--- NOTE | 2023-09-19 06:01 | NUR ---
MD COTTER NOTIFIED OF PODIATRY CONSULT. CONFIRMED THAT PATIENT HAS BEEN NPO SINCE MIDNIGHT. PER MD, PATIENT TO GO TO OR TODAY. SECY NOTIFIED.
[2023-09-19 06:12] LABS: BASOPHILS ABSOLUTE AUTO 0.03 K/mm3 (0.00-0.23); BASOPHILS PERCENT AUTO 0 % (0-2); EOSINOPHILS ABSOLUTE AUTO 0.16 K/mm3 (0.00-0.68); EOSINOPHILS PERCENT AUTO 2 % (0-6); Hematocrit 27.3 % (37.0-53.0); Hemoglobin 8.9 g/dL (13.5-17.5); IMMATURE GRAN ABSOLUTE AUTO 0.02 K/mm3 (0.00-0.10); IMMATURE GRAN PERCENT AUTO 0 % (0-1); LYMPHOCYTES ABSOLUTE AUTO 1.34 K/mm3 (0.84-5.20); LYMPHOCYTES PERCENT AUTO 18 % (21-46); MONOCYTES ABSOLUTE AUTO 0.94 K/mm3 (0.16-1.47); MONOCYTES PERCENT AUTO 13 % (4-13); Mean Corpuscular HGB 31.4 pg (26.0-34.0); Mean Corpuscular HGB Conc 32.6 g/dL (31.5-36.5); Mean Corpuscular Volume 97 fL (80-100); NEUTROPHILS ABSOLUTE AUTO 4.87 K/mm3 (1.96-9.15); NEUTROPHILS PERCENT AUTO 66 % (41-73); Platelet Count 387 K/mm3 (150-400); RDW Coefficient Variation 13.1 % (11.7-14.2); RDW Standard Deviation 46.9 fL (35.1-46.3); Red Blood Cell Count 2.83 M/mm3 (4.30-5.90); White Blood Cell Count 7.36 K/mm3 (4.00-11.30)
[2023-09-19 06:33] LABS: Albumin, Blood 2.8 g/dL (3.4-5.0); Albumin/Globulin Ratio 0.6 (0.8-1.8); Bilirubin, Total 0.3 mg/dL (0.1-1.0); Bun/Creatinine Ratio 17.3 (12.0-20.0); Calcium, Blood 8.2 mg/dL (8.5-10.1); Creatinine, Blood 1.1 mg/dL (0.60-1.20); Globulin, Blood 4.4 g/dL (2.2-4.0); Potassium, Blood 3.7 mmol/L (3.5-5.5); Total Protein, Blood 7.2 g/dL (6.4-8.2)
[2023-09-19] MEDS ORDERED: Insulin Human Lispro 100 Units/ML 3ML Syringe SC SCH (07:30)
[2023-09-19 07:42] VITALS: BP 132/76
[2023-09-19] MEDS ORDERED: Furosemide 20 MG Tab PO SCH (09:00)
[2023-09-19] MEDS ORDERED: Metoprolol Succinate 50 MG TABCR PO SCH (09:00)
[2023-09-19] MEDS ORDERED: Atorvastatin 40 MG Tab PO SCH (09:00)
[2023-09-19] MEDS ORDERED: Irbesartan 150 MG Tab PO SCH (09:00)
[2023-09-19] MEDS ORDERED: Allopurinol 300 MG Tab PO SCH (09:00)
[2023-09-19] MEDS ORDERED: Cilostazol 50 MG Tab PO SCH (09:00)
--- NOTE | 2023-09-19 11:49 | NUR ---
SPOKE TO OR STAFF SURGERY PLANNED FOR SOMETIME THIS LATE AFTERNOON.
[2023-09-19] MEDS ORDERED: Polyethylene Glycol 3350 17 gm PO PRN (11:55)
[2023-09-19] MEDS ORDERED: METFORMIN HCL500 M2 PO (14:05)
[2023-09-19 14:59] VITALS: BP 136/64
--- NOTE | 2023-09-19 18:18 | NUR ---
SHIFT SUMMARY PT NPO MOST THE DAY AWAITING SURGERY TODAY. UNFORTUNATELY SURGERY WAS PUSHED BACK UNTIL TOMORROW. DINNER TRAY PROVIDED & PLAN TO BE NPO AFTER MIDNIGHT AGAIN TONIGHT. NO CHANGES IN PATIENT ASSESSMENT. PT COOPERATIVE AND UNDERSTANDING ABOUT SURGERY TIME CHANGE. PT UP IN BED EATING DINNER. CALL LIGHT IN REACH. DENIES OTHER NEEDS AT THIS TIME.
[2023-09-19 19:51] VITALS: BP 124/70
[2023-09-20] VITALS (16 sets, daily range): BP systolic 115–163; BP diastolic 69–98
--- NOTE | 2023-09-20 02:57 | NUR ---
SHIFT SUMMARY PT. IS A&OX4, [place], COOP WITH CARE. PT.IS NPO AFTER MIDNIGHT FOR A SCHEDULED LEFT FOOT 5TH TOE AMPUTATION TODAY BY . PT. DENIES PAIN, SOB OR DISCOMFORT. TELE:SINUS RHYTHM 70'S WITH 1ST DEGREE HB. NO ACUTE EVENTS/DISTRESS NOTED/REPORTED DURING THIS SHIFT. WILL HANDOFF TO THE INCOMING SHIFT NURSE. CALL LIGHT IN REACH.
[2023-09-20 05:46] LABS: Hematocrit 28.7 % (37.0-53.0); Hemoglobin 9.4 g/dL (13.5-17.5); Mean Corpuscular HGB 31.4 pg (26.0-34.0); Mean Corpuscular HGB Conc 32.8 g/dL (31.5-36.5); Mean Corpuscular Volume 96 fL (80-100); Mean Platelet Volume 11.2 fL (9.1-12.4); Platelet Count 390 K/mm3 (150-400); RDW Coefficient Variation 13.1 % (11.7-14.2); RDW Standard Deviation 45.9 fL (35.1-46.3); Red Blood Cell Count 2.99 M/mm3 (4.30-5.90); White Blood Cell Count 7.06 K/mm3 (4.00-11.30)
[2023-09-20 06:12] LABS: Bun/Creatinine Ratio 16.8 (12.0-20.0); Calcium, Blood 8.4 mg/dL (8.5-10.1); Creatinine, Blood 1.13 mg/dL (0.60-1.20); Potassium, Blood 3.9 mmol/L (3.5-5.5)
[2023-09-20] MEDS ORDERED: Enoxaparin 40 MG/0.4 ML SYR SC SCH (09:00)
[2023-09-20] MEDS ORDERED: propofoL 20 ML IV ONE (16:56)
[2023-09-20] MEDS ORDERED: FentaNYL Citrate 50 MCG/ML 2 ML Injection ONE (16:57)
[2023-09-20] MEDS ORDERED: Lactated Ringer's 1,000 ML IV SCH (17:15)
[2023-09-20] MEDS ORDERED: CefTRIAXone Sodium 1,000 MG in NS 100 ML IV ONE (17:20)
[2023-09-20] MEDS ORDERED: NS 1,000 ML IV SCH (17:35)
[2023-09-20] MEDS ORDERED: Midazolam HCl 1MG / ML 2ML Vial IV ONE (17:40)
[2023-09-20] MEDS ORDERED: Lidocaine HCL 1% 10 ML MDV ONE (17:40)
[2023-09-20] MEDS ORDERED: Bupivacaine 0.5% Inj 10 ML Vial ONE (17:40)
--- NOTE | 2023-09-20 17:56 | NUR ---
PATIENT NPO TODAY FOR L 5TH TOE AMPUTATION TODAY. PATIENT IS DOWN GETTING THAT DONE NOW. PATIENT IS A/OX4, UP WITH FWW INDEPENDENTLY IN ROOM. VSS, ON RA. PLEASANT AND COOPERATIVE WITH CARE. NO NEW CONCERNS THIS SHIFT. PATIENT ABLE TO COMMUNICATE NEEDS.
--- NOTE | 2023-09-20 18:01 | NUR ---
History, Chart, Medications and Allergies reviewed before start of procedure. Patient up to Ambulate independently. Gait steady. Pre-Op teaching done. Pt verbalizes understanding. Patient confirms NPO status and agrees with scheduled surgery.
[2023-09-20] MEDS ORDERED: Ondansetron HCl 2 MG / ML 2ML Vial ONE (18:04)
[2023-09-20] MEDS ORDERED: Dexamethasone Sod Phos 10 MG/ML 1ML VIAL ONE (18:04)
[2023-09-20] MEDS ORDERED: Phenylephrine HCl 100 MCG/ML-NS 10MLSYR (1MG/10ML) ONE (18:05)
[2023-09-20] MEDS ORDERED: ePHEDrine Sulfate 50 MG/ML 1ML Injection ONE (18:11)
[2023-09-20] MEDS ORDERED: Flumazenil 0.1 MG / ML 5ML Vial ONE (18:44)
--- NOTE | 2023-09-20 19:20 | NUR ---
TELE RECCONECTED AND CONFIRMED WITH FOOD SANITARIAN
[2023-09-20] MEDS ORDERED: NS 250 ML IV PRN (20:00)
[2023-09-21 04:38] VITALS: BP 115/69
--- NOTE | 2023-09-21 05:01 | NUR ---
SHIFT SUMMARY PT. TRANSFERRED BACK TO MEDICAL FLOOR FROM PCU POST SURGERY DURING THIS SHFIT AT . PT.IS A&O X4. LEFT FOOT DRESSING C/D/I. VSS. 100% DINNER, CBG @ 247.TELE:SR@70.PT. RESTING HOB>45 DEGREES, LLE ELEVATED WITH PILLOW. SMALL AMOUNT RED COLOR DRAINAGE, 1X DRESSING CHANGE OF MID&OUTER LAYER BY NATO WEEKS. NO S/SX OF REDNESS/WARMTH/SWELLING NOTED DURING THIS SHIFT. MEDICATED FOR PAIN 2X WITH TYLENOL PO PRN, AND 1X FETANYL IV PRN, C/O 8/10 PAIN. PT.REPORTS GOOD EFFECTIVNESS. PT. RESTING COMFORTABLY T/O THIS SHIFT, BED AT THE LOWEST POSITION, CALL LIGHT IN REACH. WILL HANDOFF TO THE DAY SHIFT NURSE.
[2023-09-21 07:49] VITALS: BP 138/79
[2023-09-21 16:03] VITALS: BP 113/64
--- NOTE | 2023-09-21 16:18 | NUR ---
NO ACUTE CHANGES THIS SHIFT. PT IS ALERT AND ORIENTED X4, ABLE TO MAKE NEEDS KNOWN. DRESSING IS C/D/I. DR. COTTER IN TO SEE PT THIS AFTERNOON. PER DR. COTTER OK TO DISCHARGE ON HIS END. WATCH FOR EXESSIVE BLEEDING WITH AMBULATION. HEEL TOUCH OK, AND WITH BOOT/SHOE ON. TREATED PAIN PER EMAR.
[2023-09-21 20:09] VITALS: BP 116/65
[2023-09-22 04:15] VITALS: BP 118/64
[2023-09-22 05:18] LABS: Hematocrit 27.2 % (37.0-53.0); Mean Corpuscular HGB Conc 33.1 g/dL (31.5-36.5); Mean Corpuscular Volume 97 fL (80-100); Mean Platelet Volume 11.3 fL (9.1-12.4); Platelet Count 350 K/mm3 (150-400); RDW Coefficient Variation 13.1 % (11.7-14.2); Red Blood Cell Count 2.81 M/mm3 (4.30-5.90); White Blood Cell Count 9.61 K/mm3 (4.00-11.30)
[2023-09-22 05:47] LABS: Bun/Creatinine Ratio 20.8 (12.0-20.0); Calcium, Blood 8.2 mg/dL (8.5-10.1); Creatinine, Blood 1.25 mg/dL (0.60-1.20); Potassium, Blood 3.8 mmol/L (3.5-5.5)
--- NOTE | 2023-09-22 07:19 | NUR ---
NOC SHIFT SUMMARY PT APPEARED TO SLEEP WELL. HE IS ABLE TO AMBULATE INDEPENDENTLY WITH HIS BOOT ON AND HIS FWW. HE HAS EXCELLENT SAFETY AWARENESS.
[2023-09-22 07:33] VITALS: BP 105/60
== END 2023-09-22 13:14 | disposition home or self-care (01) | DRG 617 ==
LOC: ER 12:05 → MEDS 12:06
PROVIDERS: Internal Medicine; Physician Assistant; Podiatrist; ADMIT Internal Medicine
PROC: 0QBP0ZZ Excision of Left Metatarsal, Open Approach (ICD-10-PCS; 2023-09-20)
PROC: 0Y6Y0Z0 Detachment at Left 5th Toe, Complete, Open Approach (ICD-10-PCS; principal; 2023-09-20 17:00)
DX: E11.69 Type 2 diabetes mellitus with other specified complication (principal); M86.172 Other acute osteomyelitis, left ankle and foot; E11.51 Type 2 diabetes mellitus with diabetic peripheral angiopathy without gangrene; B95.1 Streptococcus, group B, as the cause of diseases classified elsewhere; B95.62 Methicillin resistant Staphylococcus aureus infection as the cause of diseases classified elsewhere; K21.9 Gastro-esophageal reflux disease without esophagitis; J45.909 Unspecified asthma, uncomplicated; L97.524 Non-pressure chronic ulcer of other part of left foot with necrosis of bone; I12.9 Hypertensive chronic kidney disease with stage 1 through stage 4 chronic kidney disease, or unspecified chronic kidney disease; E11.621 Type 2 diabetes mellitus with foot ulcer; M10.9 Gout, unspecified; Z79.84 Long term (current) use of oral hypoglycemic drugs; Z79.2 Long term (current) use of antibiotics; Z79.899 Other long term (current) drug therapy; Z87.891 Personal history of nicotine dependence; L03.032 Cellulitis of left toe; N18.2 Chronic kidney disease, stage 2 (mild); E78.5 Hyperlipidemia, unspecified; Z79.82 Long term (current) use of aspirin; Z87.81 Personal history of (healed) traumatic fracture
CPT/HCPCS: 36415; 73620; 80048; 80053; 82947; 83880; 85025; 85027; 85610; 87071; 87075; 87077; 87147; 87186; 87205; 88305; 88311; 96365; 99284-25; A9270; G0378; J0696; J1100; J1650; J1815; J2001; J2250; J2371; J2405; J2704; J3010; J7030

== ENCOUNTER 2023-12-29 12:00 | Emergency (ER) | payer MEDICARE ==
[~2023-12-29] VITALS: Ht 188 cm; Wt 101.6 kg
[~2023-12-29 12:00] MED LIST changes: +ATOR40TA PO; +CLIN150 PO; +FURO20 PO; +METFORMIN HCL500 M2 PO; +POTA10T PO
[2023-12-29 12:19] VITALS: BP 157/76
== END 2023-12-29 13:41 | disposition home or self-care (01) ==
LOC: ER 12:00
DX: M25.551 Pain in right hip (principal); Z87.891 Personal history of nicotine dependence
CPT/HCPCS: 73502; 73562-RT; 99283-25

== ENCOUNTER 2024-02-07 10:13 | Day surgery (SDC) | payer MEDICARE ==
[~2024-02-07] VITALS: Ht 188 cm; Wt 89.2 kg
[2024-02-07] MEDS ORDERED: CeFAZolin Sodium 2,000 MG VIAL ONE (10:15)
[2024-02-07] MEDS ORDERED: Lactated Ringer's 1,000 ML IV ONE ×2 (10:16→10:27)
[2024-02-07] MEDS ORDERED: NS 50 ML IV ONE (10:16)
[2024-02-07 10:50] VITALS: BP 151/79
--- NOTE | 2024-02-07 11:43 | NUR ---
02/07/24 1143 ANTONETTE BORREGO PT READY FOR OR, PT NOTIFIED HE IS NEXT UP FOR OR. CALL LIGHT AT BEDSIDE, BOB DUTTON, IN TO CHECK ON PATIENT
[2024-02-07] MEDS ORDERED: FentaNYL Citrate 50 MCG/ML 2 ML Injection ONE (12:04)
[2024-02-07] MEDS ORDERED: propofoL 20 ML IV ONE (12:04)
== END 2024-02-07 13:06 | disposition home or self-care (01) ==
LOC: ORSCSDS 10:13
DX: T84.9XXA Unspecified complication of internal orthopedic prosthetic device, implant and graft, initial encounter (principal); Z96.9 Presence of functional implant, unspecified; Z53.9 Procedure and treatment not carried out, unspecified reason
CPT/HCPCS: 82947; J0690; J2704; J3010; J7120

== ENCOUNTER 2024-02-16 09:16 | Day surgery (SDC) | payer MEDICARE ==
[2024-02-16] VITALS (14 sets, daily range): BP systolic 130–174; BP diastolic 70–97
[~2024-02-16] VITALS: Ht 188 cm; Wt 98.0 kg
[2024-02-16] MEDS ORDERED: CeFAZolin Sodium 2,000 MG in NS 100 ML IV SCH (09:25)
[2024-02-16] MEDS ORDERED: Lactated Ringer's 1,000 ML IV SCH (09:25)
[2024-02-16] MEDS ORDERED: CeFAZolin Sodium 2,000 MG VIAL ONE (09:53)
--- NOTE | 2024-02-16 10:15 | NUR ---
History, Chart, Medications and Allergies reviewed before start of procedure. Pre-Op teaching done. Pt verbalizes understanding. Patient confirms NPO status and agrees with scheduled surgery. PT REQUESTS TO WEAR HEARING AID AND UPPER DENTURE BACK TO OR. LICENSED MORTGAGE LOAN OFFICER GIVEN 2 DENTURE CUPS FOR BOTH HEARING AID AND DENTURE.
--- NOTE | 2024-02-16 10:25 | NUR ---
[facility] SENT TO LAB FOR PT/PTT, CBC, AND TYPE & SCREEN. CALLED LAB AND VERIFIED THAT THE CBC CAN BE RAN FROM THE [facility].
[2024-02-16 10:48] LABS: Hematocrit 30.4 % (37.0-53.0); Hemoglobin 10.1 g/dL (13.5-17.5); Mean Corpuscular HGB 32.8 pg (26.0-34.0); Mean Corpuscular HGB Conc 33.2 g/dL (31.5-36.5); Mean Corpuscular Volume 99 fL (80-100); Mean Platelet Volume 11.4 fL (9.1-12.4); Platelet Count 231 K/mm3 (150-400); RDW Coefficient Variation 13.3 % (11.7-14.2); RDW Standard Deviation 47.1 fL (35.1-46.3); Red Blood Cell Count 3.08 M/mm3 (4.30-5.90); White Blood Cell Count 6.31 K/mm3 (4.00-11.30)
[2024-02-16 11:00] LABS: International Normalized Ratio 0.96; Prothrombin Time Results 10.3 Sec (9.7-11.5)
[2024-02-16] MEDS ORDERED: Tranexamic Acid 100 ML IV SCH (11:05)
[2024-02-16] MEDS ORDERED: FentaNYL Citrate 50 MCG/ML 5 ML Injection ONE (11:14)
[2024-02-16] MEDS ORDERED: propofoL 20 ML IV ONE (11:14)
[2024-02-16] MEDS ORDERED: Dexamethasone Sod Phos 10 MG/ML 1ML VIAL ONE (11:15)
[2024-02-16] MEDS ORDERED: Lidocaine HCl 2% 20 ML MDV ONE (11:15)
[2024-02-16] MEDS ORDERED: Ondansetron HCl 2 MG / ML 2ML Vial ONE (11:15)
[2024-02-16] MEDS ORDERED: Rocuronium Bromide 10 MG/ML 5ML Injection IV ONE ×2 (11:15→13:56)
[2024-02-16] MEDS ORDERED: EpiNEPhrine 1 MG/1 ML 1ML Vial ONE (11:42)
[2024-02-16] MEDS ORDERED: Bupivacaine 0.5% HCl 5 MG/ML 30MLVIAL ONE (11:42)
[2024-02-16] MEDS ORDERED: Phenylephrine HCl 100 MCG/ML-NS 10MLSYR (1MG/10ML) ONE (11:48)
[2024-02-16] MEDS ORDERED: Ondansetron HCl 2 MG / ML 2ML Vial IV PRN (11:50)
[2024-02-16] MEDS ORDERED: HYDROmorphone HCl/Pf 1MG SYR IV PRN (11:50)
[2024-02-16] MEDS ORDERED: FentaNYL Citrate 50 MCG/ML 2 ML Injection IV PRN ×3 (11:50→11:55)
[2024-02-16] MEDS ORDERED: TraMADol HCl 50 MG Tab PO PRN (15:55)
--- NOTE | 2024-02-16 16:09 | NUR ---
REPORT RECEIVED FROM MONICA DUTTON. VSS. PT ON RA. PT A&OX4. PT [place], HEARING DEVICE IN PLACE. PT REQUESTING PO FLUIDS AND TOLERATING THEM WELL. PT DENIES PAIN, NAUSEA OR OTHER DISCOMFORTS. WARM BLANKETS PROVIDED. PT HAS PRESSURE TAPE TO RIGHT HIP THAT IS C/D/I WITHOUT DRAINAGE, REDNESS OR SWELLING.
--- NOTE | 2024-02-16 16:14 | NUR ---
WAITING FOR PT TO ARRIVE TO GO OVER D/C INSTRUCTIONS DUE TO HIS [place]. PT TOLERATING PO FOOD/FLUIDS. NO COMPLAINTS.
--- NOTE | 2024-02-16 16:42 | NUR ---
1630: DR PRICE AT BEDSIDE. PER DR PRICE, OKAY TO D/C PT HOME IF HE IS ABLE TO AMBULATE, OTHERWISE SEND HIM TO SURGICAL FLOOR FOR EXTENDED RECOVERY. 1635: PT ABLE TO AMBULATE W/FWW TO BR TO VOID. PT ABLE TO DRESS INTO CLOTHES INDEPENDENTLY. JUST AWAITING RIDE HOME TO GO OVER D/C INSTRUCTIONS.
--- NOTE | 2024-02-16 17:09 | NUR ---
Patient up to Ambulate independently WITH FWW. Gait steady AND CONSISTENT WITH PT BASELINE. DR PRICE AWARE OF BP, NO NEW ORDERS RECEIVED. OKAY TO D/C HOME PER DR PRICE. PT HAS NO COMPLAINTS AND VERBALIZES READINESS TO GO HOME. Discharge instructions reviewed with patient AND HIS . Patient AND verbalize understanding. Copy given to patient to take home. Dressing to procedure site clean, dry, intact with no visible drainage, swelling, erythema or bruising noted. Discharged via wheelchair to private car for ride home. PT BELONGINGS RETURNED TO PT.
== END 2024-02-16 17:09 | disposition home or self-care (01) ==
LOC: ORSCMMR 09:16 → ORD 10:00 → ORSCMMR 11:15 → ORD 11:45 → ORSCMMR 17:09
PROVIDERS: Anesthesiology; Orthopaedic Surgery
PROC: 0SP904Z Removal of Internal Fixation Device from Right Hip Joint, Open Approach (ICD-10-PCS; principal; 2024-02-16 11:15)
DX: T84.9XXA Unspecified complication of internal orthopedic prosthetic device, implant and graft, initial encounter (principal); Z96.9 Presence of functional implant, unspecified; I12.9 Hypertensive chronic kidney disease with stage 1 through stage 4 chronic kidney disease, or unspecified chronic kidney disease; E10.22 Type 1 diabetes mellitus with diabetic chronic kidney disease; N18.9 Chronic kidney disease, unspecified; Z87.891 Personal history of nicotine dependence; Z79.4 Long term (current) use of insulin; Z79.84 Long term (current) use of oral hypoglycemic drugs; E78.5 Hyperlipidemia, unspecified; Z79.899 Other long term (current) drug therapy
CPT/HCPCS: 82947; 85027; 85610; 85730; 86850; 86900; 86901; 87070; 87071; 87075; 87205; C1713; C1769; J0171; J0690; J1100; J2371; J2405; J2704; J3010; J7120

== ENCOUNTER 2024-02-20 12:50 | Emergency (ER) | payer MEDICARE ==
[~2024-02-20] VITALS: Ht 188 cm; Wt 102.1 kg
[2024-02-20 13:32] LABS: BASOPHILS ABSOLUTE AUTO 0.01 K/mm3 (0.00-0.23); BASOPHILS PERCENT AUTO 0 % (0-2); EOSINOPHILS ABSOLUTE AUTO 0.08 K/mm3 (0.00-0.68); EOSINOPHILS PERCENT AUTO 1 % (0-6); Hematocrit 29.2 % (37.0-53.0); Hemoglobin 9.7 g/dL (13.5-17.5); IMMATURE GRAN ABSOLUTE AUTO 0.03 K/mm3 (0.00-0.10); IMMATURE GRAN PERCENT AUTO 0 % (0-1); LYMPHOCYTES ABSOLUTE AUTO 0.76 K/mm3 (0.84-5.20); LYMPHOCYTES PERCENT AUTO 7 % (21-46); MONOCYTES ABSOLUTE AUTO 1.03 K/mm3 (0.16-1.47); MONOCYTES PERCENT AUTO 10 % (4-13); Mean Corpuscular HGB 33.1 pg (26.0-34.0); Mean Corpuscular HGB Conc 33.2 g/dL (31.5-36.5); Mean Corpuscular Volume 100 fL (80-100); Mean Platelet Volume 11.4 fL (9.1-12.4); NEUTROPHILS ABSOLUTE AUTO 8.77 K/mm3 (1.96-9.15); NEUTROPHILS PERCENT AUTO 82 % (41-73); Platelet Count 243 K/mm3 (150-400); RDW Coefficient Variation 13.1 % (11.7-14.2); RDW Standard Deviation 47.8 fL (35.1-46.3); Red Blood Cell Count 2.93 M/mm3 (4.30-5.90); White Blood Cell Count 10.68 K/mm3 (4.00-11.30)
[2024-02-20 13:59] LABS: Albumin, Blood 3.5 g/dL (3.4-5.0); Albumin/Globulin Ratio 0.8 (0.8-1.8); Bilirubin, Total 0.7 mg/dL (0.1-1.0); Bun/Creatinine Ratio 21.9 (12.0-20.0); Calcium, Blood 9.4 mg/dL (8.5-10.1); Creatinine, Blood 1.46 mg/dL (0.60-1.20); Globulin, Blood 4.6 g/dL (2.2-4.0); Potassium, Blood 4.5 mmol/L (3.5-5.5); Total Protein, Blood 8.1 g/dL (6.4-8.2)
[2024-02-20 14:53] LABS: Influenza A, PCR NEGATIVE (NEGATIVE); Influenza B, PCR NEGATIVE (NEGATIVE); Resp Syncytial Virus, PCR NEGATIVE (NEGATIVE); SARS-Cov-2 (COVID-19) PCR, MMC NEGATIVE (NEGATIVE)
[2024-02-20 16:43] VITALS: BP 169/83
== END 2024-02-20 18:51 | disposition left against medical advice (07) ==
LOC: ER 12:50
PROVIDERS: Emergency Medicine
DX: R11.2 Nausea with vomiting, unspecified (principal); E11.51 Type 2 diabetes mellitus with diabetic peripheral angiopathy without gangrene; E11.22 Type 2 diabetes mellitus with diabetic chronic kidney disease; I12.9 Hypertensive chronic kidney disease with stage 1 through stage 4 chronic kidney disease, or unspecified chronic kidney disease; N18.9 Chronic kidney disease, unspecified; Z87.891 Personal history of nicotine dependence; Z79.84 Long term (current) use of oral hypoglycemic drugs; Z79.899 Other long term (current) drug therapy; Z53.29 Procedure and treatment not carried out because of patient's decision for other reasons
CPT/HCPCS: 0241U; 80053; 84484; 85025; 93005; 93010; 99282-25